=== PATIENT | female | born 1960 | race African-American/Black ===

== ENCOUNTER 2022-08-12 10:29 | Emergency (ER) | payer OTHER ==
[2022-08-12 11:03] VITALS: TEMP 99; BMI 21.1
[2022-08-12] MEDS ORDERED: SODIUM CHLORIDE 1,000 ML IV STA (11:14)
[2022-08-12 11:36] LABS: HEMATOCRIT 38.7 % (32.4-45.2); HEMOGLOBIN 12.7 G/dL (10.7-15.3); MCH 29.9 pg (25.7-33.7); MCHC 32.7 g/dl (32.0-36.0); MEAN CELL VOLUME 91.5 fl (80-96); MEAN PLT VOLUME 9.3 fl (7.5-11.1); RBC 4.23 10^6/uL (3.60-5.2); RDW 14.4 % (11.6-15.6); WHITE BLOOD COUNT 3.3 10^3/uL (4.0-10.8)
[2022-08-12 11:44] LABS: INR 1.12 (0.83-1.09)
[2022-08-12 11:47] LABS: ACTIVATED PTT 39.7 SECONDS (25.2-36.5)
[2022-08-12 12:01] LABS: ALBUMIN 4.6 g/dl (3.4-5.0); BILIRUBIN,TOTAL 1.3 mg/dl (0.2-1); BLOOD UREA NITROGEN 9.8 mg/dl (7-18); CALCIUM 9.9 mg/dl (8.5-10.1); CREATININE 0.7 mg/dl (0.6-1.3); POTASSIUM 3.9 mmol/L (3.5-5.1); SGOT/AST 21.2 U/L (15-37); SGPT/ALT 18.1 U/L (7-52); TOT PROT 7.1 g/dl (6.4-8.2)
[2022-08-12 12:24] LABS: PLATELET ESTIMATE ADEQUATE
[2022-08-12 13:13] VITALS: BP 128/69; PULSE 78; RESP 16
== END 2022-08-12 12:45 | disposition home or self-care (01) ==
LOC: FER 10:29
PROC: 3E0337Z Introduction of Electrolytic and Water Balance Substance into Peripheral Vein, Percutaneous Approach (ICD-10-PCS; principal; 2022-08-12)
DX: R00.2 Palpitations (principal); R00.0 Tachycardia, unspecified; R51.9 Headache, unspecified; Z20.822 Contact with and (suspected) exposure to COVID-19
CPT/HCPCS: 0241U-QW; 36415; 80053; 83735; 84439; 84443; 84484; 85027; 85610; 85730; 93005; 99284-25

== ENCOUNTER 2023-05-22 10:50 | Emergency (ER) | payer OTHER ==
[2023-05-22 11:06] VITALS: BP 155/105; PULSE 81; RESP 20; TEMP 98.2; BMI 21.2
[2023-05-22] MEDS: IBUPROFEN 400 MG TABLET (FP) PO ONE (11:50)
[2023-05-22] MEDS ORDERED: IBUPROFEN 400 MG TABLET (FP) PO ONE (11:54)
[2023-05-22 11:58] LABS: HEMOGLOBIN 12.9 G/dL (10.7-15.3); MCH 28.6 pg (25.7-33.7); MCHC 31.5 g/dl (32.0-36.0); MEAN CELL VOLUME 90.7 fl (80-96); MEAN PLT VOLUME 9.4 fl (7.5-11.1); PLATELET COUNT 192.3 10^3/uL (134-434); RBC 4.52 10^6/uL (3.60-5.2); RDW 14.5 % (11.6-15.6); WHITE BLOOD COUNT 3.8 10^3/uL (4.0-10.8)
[2023-05-22 12:16] LABS: ALBUMIN 4.8 g/dl (3.4-5.0); BILIRUBIN,TOTAL 1.1 mg/dl (0.2-1); CALCIUM 9.9 mg/dl (8.5-10.1); CREATININE 0.7 mg/dl (0.6-1.3); POTASSIUM 4.2 mmol/L (3.5-5.1); TOT PROT 7.8 g/dl (6.4-8.2)
== END 2023-05-22 14:34 | disposition home or self-care (01) ==
LOC: FER 10:50
DX: R07.89 Other chest pain (principal)
CPT/HCPCS: 36415; 71046-TC-FY; 80053; 84484; 85027; 93005; 99285-25